=== PATIENT | male | born 1975 | race Caucasian/White ===

== ENCOUNTER 2020-07-03 09:58 | Emergency (ER) | payer MEDICAID ==
[~2020-07-03] VITALS: Ht 190.5 cm; Wt 101.1 kg
[2020-07-03 10:04] VITALS: BP 118/74
== END 2020-07-03 10:44 | disposition home or self-care (01) ==
LOC: ED 10:30
DX: E11.9 Type 2 diabetes mellitus without complications (principal); Z76.0 Encounter for issue of repeat prescription
CPT/HCPCS: 99281

== ENCOUNTER 2020-07-26 15:10 | Emergency (ER) | payer MEDICAID ==
[~2020-07-26] VITALS: Ht 190.5 cm; Wt 101.7 kg
[2020-07-26 15:12] VITALS: BP 132/81
--- NOTE | 2020-07-26 16:42 | NUR ---
REPAIRER GENERAL: CALLED PT NO ANSWER
--- NOTE | 2020-07-26 16:56 | NUR ---
SALES ENABLEMENT CONSULTANT: CALLED PT NO ANSWER
--- NOTE | 2020-07-26 17:11 | NUR ---
CORRECTIONAL SUPERVISOR: CALLED PT NO ANSWER
== END 2020-07-26 17:12 ==
LOC: ED 17:06
DX: E11.9 Type 2 diabetes mellitus without complications (principal); Z53.21 Procedure and treatment not carried out due to patient leaving prior to being seen by health care provider; Z76.0 Encounter for issue of repeat prescription
CPT/HCPCS: 82962

== ENCOUNTER 2020-07-26 17:22 | Emergency (ER) | payer MEDICAID ==
[~2020-07-26] VITALS: Ht 190.5 cm; Wt 105.3 kg
[2020-07-26 17:26] VITALS: BP 122/84
--- NOTE | 2020-07-26 17:40 | NUR ---
PT NEEDS A REFILL ON DIABETES MEDS. PT JUST MOVED TO [place] AND DOES NOT HAVE PRIMARY CARE.
--- NOTE | 2020-07-26 18:05 | NUR ---
PT PROVIDED DISCHARGE INSTRUCTION AND EDUCATION. PT HAD NO FURTHER QUESTIONS. PT AMBULATED TO DISCHARGE AREA, STEADY GAIT.
== END 2020-07-26 18:08 | disposition home or self-care (01) ==
LOC: ED 17:45
DX: E11.9 Type 2 diabetes mellitus without complications (principal); Z76.0 Encounter for issue of repeat prescription; F17.290 Nicotine dependence, other tobacco product, uncomplicated
CPT/HCPCS: 99281

== ENCOUNTER 2020-09-15 10:17 | Emergency (ER) | payer MEDICAID ==
[~2020-09-15] VITALS: Ht 190.5 cm; Wt 101.5 kg
[2020-09-15 10:20] VITALS: BP 136/82
[2020-09-15] MEDS ORDERED: metFORMIN 500 MG TABLET ONE (10:49)
[2020-09-15] MEDS ORDERED: metFORMIN 500 MG TABLET PO ONE (11:00)
== END 2020-09-15 11:01 | disposition home or self-care (01) ==
LOC: ED 10:45
DX: E11.65 Type 2 diabetes mellitus with hyperglycemia (principal); R53.83 Other fatigue; R42 Dizziness and giddiness; Z76.0 Encounter for issue of repeat prescription
CPT/HCPCS: 82962; 99283

== ENCOUNTER 2020-10-14 14:56 | Emergency (ER) | payer MEDICAID ==
[~2020-10-14] VITALS: Ht 190.5 cm; Wt 97.0 kg
--- NOTE | 2020-10-14 15:22 | NUR ---
FIRST CONTACT WITH PATIENT. HE IS A 45M COMPLAINING OF THROAT PAIN SINCE THIS AM. IT IS PAINFUL TO SWALLOW ANY FLUIDS. PROVIDER AT BEDSIDE, COVID SWAB AND STREP SWAB COLLECTED. CALL LIGHT WITHIN REACH, CONTINUOUS SPO2 AND CYCLING VITALS.
[2020-10-14] MEDS ORDERED: KETOROLAC 30 MG/1 ML IM ONE (15:30)
[2020-10-14] MEDS ORDERED: KETOROLAC 30 MG/1 ML ONE (15:31)
[2020-10-14 16:13] VITALS: BP 103/64
== END 2020-10-14 16:15 | disposition home or self-care (01) ==
LOC: ED 15:18
DX: J02.8 Acute pharyngitis due to other specified organisms (principal); Z20.822 Contact with and (suspected) exposure to COVID-19; B97.89 Other viral agents as the cause of diseases classified elsewhere; E11.9 Type 2 diabetes mellitus without complications; F17.200 Nicotine dependence, unspecified, uncomplicated; Z76.0 Encounter for issue of repeat prescription
CPT/HCPCS: 87081; 87635; 87880; 96372; 99283; J1885

== ENCOUNTER 2020-11-13 11:55 | Emergency (ER) | payer MEDICAID ==
[~2020-11-13] VITALS: Ht 190.5 cm; Wt 99.2 kg
[2020-11-13 11:58] VITALS: BP 100/79
== END 2020-11-13 12:32 | disposition home or self-care (01) ==
LOC: ED 12:15
DX: E11.9 Type 2 diabetes mellitus without complications (principal); Z76.0 Encounter for issue of repeat prescription
CPT/HCPCS: 99281

== ENCOUNTER 2020-12-17 12:20 | Emergency (ER) | payer MEDICAID ==
[~2020-12-17] VITALS: Ht 182.9 cm; Wt 97.8 kg
[2020-12-17 12:25] VITALS: BP 110/76
--- NOTE | 2020-12-17 13:21 | NUR ---
PT TO ROOM FROM LOBBY
--- NOTE | 2020-12-17 13:24 | NUR ---
THIS IS A 45 YEAR OLD MALE WHO C/O OF SWELLING, NUMBNESS, AND PAIN IN LEFT FINGERS SINCE YESTERDAY
--- NOTE | 2020-12-17 14:49 | NUR ---
the pt is sleeping comfortably in bed, respirations even and unlabored. call light within reach, awaiting disposition.
== END 2020-12-17 15:40 | disposition home or self-care (01) ==
LOC: ED 13:15
DX: L03.012 Cellulitis of left finger (principal); E11.9 Type 2 diabetes mellitus without complications; F17.200 Nicotine dependence, unspecified, uncomplicated
CPT/HCPCS: 99283

== ENCOUNTER 2020-12-26 10:20 | Emergency (ER) | payer MEDICAID ==
[~2020-12-26] VITALS: Ht 190.5 cm; Wt 97.1 kg
[2020-12-26 10:23] VITALS: BP 100/72
--- NOTE | 2020-12-26 11:08 | NUR ---
Patient given discharge instructions and they have confirmed that they understand the instructions. Patient ambulatory with steady gait.
== END 2020-12-26 11:09 | disposition home or self-care (01) ==
LOC: ED 10:28
DX: E11.9 Type 2 diabetes mellitus without complications (principal); Z76.0 Encounter for issue of repeat prescription
CPT/HCPCS: 99281

== ENCOUNTER 2021-02-10 17:57 | Emergency (ER) | payer MEDICAID ==
[~2021-02-10] VITALS: Ht 190.5 cm; Wt 93.1 kg
[2021-02-10 18:09] VITALS: BP 121/74
--- NOTE | 2021-02-10 18:31 | NUR ---
Pt takes 1000mg Metformin BID and unknown dose of Glipizide for DM. Pt states he was diagnosed with DM 3 years ago in [place], he moved and has not found a PCP here.
== END 2021-02-10 18:39 | disposition home or self-care (01) ==
LOC: ED 18:09
DX: E11.9 Type 2 diabetes mellitus without complications (principal); Z76.0 Encounter for issue of repeat prescription; F17.210 Nicotine dependence, cigarettes, uncomplicated
CPT/HCPCS: 82962; 99406

== ENCOUNTER 2021-03-22 11:48 | Emergency (ER) | payer MEDICAID ==
[~2021-03-22] VITALS: Ht 190.5 cm; Wt 90.9 kg
[2021-03-22 12:15] VITALS: BP 98/71
--- NOTE | 2021-03-22 13:03 | NUR ---
ground crew lines person: Pt ambulatory to room from lobby at this time.
== END 2021-03-22 14:49 | disposition home or self-care (01) ==
LOC: ED 13:10
DX: K02.9 Dental caries, unspecified (principal); F17.210 Nicotine dependence, cigarettes, uncomplicated; E11.9 Type 2 diabetes mellitus without complications
CPT/HCPCS: 99283; 99406

== ENCOUNTER 2021-04-16 08:04 | Emergency (ER) | payer MEDICAID ==
[~2021-04-16] VITALS: Ht 188 cm; Wt 92.7 kg
--- NOTE | 2021-04-16 08:39 | NUR ---
FAIRING WORKER: PT TO ROOM FROM [facility]
--- NOTE | 2021-04-16 09:24 | NUR ---
PT TO ROOM 14 W/ C/O THINKING HE HAS GLASS IN HIS FOOT. PT STATES THEY HAD GLASS BREAK AT WORK AND WHILE HE WAS SWEEPING IT HE THINKS IT SOMEHOW GOT INTO HIS FOOT. PT STATES HE ATTEMPTED TO GET IT OUT OF HIS FOOT W/O SUCCESS. PT STATES HX DM 2. ALSO HOPING TO GET A REFILL ON HIS RX. PT RESTING ON KELSIE. CHARLES. SHAMEKAS.
[2021-04-16] MEDS ORDERED: DIPH,PERTUSS(ACELL),TET VAC/PF 0.5 ML IM-VACC ONE ×2 (10:26→10:30)
[2021-04-16] MEDS ORDERED: NEOSPORIN OINT. PKT 1 PACKET ONE (10:26)
[2021-04-16 10:28] VITALS: BP 123/78
--- NOTE | 2021-04-16 10:29 | NUR ---
PT RESTING ON GURNEY. NADN. PRADHAN.
== END 2021-04-16 10:43 | disposition home or self-care (01) ==
LOC: ED 10:30
DX: S91.341A Puncture wound with foreign body, right foot, initial encounter (principal); F17.210 Nicotine dependence, cigarettes, uncomplicated; W22.8XXA Striking against or struck by other objects, initial encounter; Y93.89 Activity, other specified; Y92.89 Other specified places as the place of occurrence of the external cause; Y99.8 Other external cause status
CPT/HCPCS: 90471; 90715; 99406

== ENCOUNTER 2021-04-18 08:06 | Emergency (ER) | payer MEDICAID ==
[~2021-04-18] VITALS: Ht 190.5 cm; Wt 91.5 kg
[2021-04-18 08:10] VITALS: BP 105/58
--- NOTE | 2021-04-18 08:18 | NUR ---
PT AMBULATORY TO ROOM FROM TRIAGE, CHANGED INTO GOWN. PT C/O R-ARMPIT RASH STARTING LAST NIGHT, ERYTHMA NOTED. PT ALSO C/O L-BOTTOM DENTAL PAIN FOR 3 DAYS. PT ALSO STATES HE WAS HERE LAST NIGHT FOR GLASS IN HIS FOOT WHICH IS STILL PAINFUL TODAY.
--- NOTE | 2021-04-18 08:19 | NUR ---
PA AT BS
--- NOTE | 2021-04-18 08:49 | NUR ---
Patient given discharge instructions and rx, they have confirmed that they understand the instructions. Patient ambulatory with steady gait.
== END 2021-04-18 08:51 | disposition home or self-care (01) ==
LOC: ED 08:28
DX: M79.672 Pain in left foot (principal); K02.9 Dental caries, unspecified; K08.89 Other specified disorders of teeth and supporting structures; R21 Rash and other nonspecific skin eruption
CPT/HCPCS: 99283

== ENCOUNTER 2021-05-22 13:21 | Emergency (ER) | payer MEDICAID ==
[~2021-05-22] VITALS: Ht 188 cm; Wt 93.0 kg
[2021-05-22 13:44] VITALS: BP 107/73
--- NOTE | 2021-05-22 14:04 | NUR ---
TASK RN: Patient/Caregiver given discharge instructions and they have confirmed that they understand the instructions. Patient ambulatory with steady gait. NAD, all questions answered appropriately, denies additional needs at this time. No personal belongings left in room after discharge.
== END 2021-05-22 14:05 | disposition home or self-care (01) ==
LOC: ED 13:53
DX: E11.65 Type 2 diabetes mellitus with hyperglycemia (principal); Z76.0 Encounter for issue of repeat prescription
CPT/HCPCS: 82962; 99283

== ENCOUNTER 2021-06-08 09:49 | Emergency (ER) | payer MEDICAID ==
[~2021-06-08] VITALS: Ht 190.5 cm; Wt 89.0 kg
[2021-06-08 13:46] VITALS: BP 107/75
--- NOTE | 2021-06-08 15:28 | NUR ---
INFUSION THERAPY NURSE: PT TO ROOM FROM LOBBY
== END 2021-06-08 15:50 | disposition home or self-care (01) ==
LOC: ED 15:40
DX: R05 Cough (principal); R06.02 Shortness of breath; Z20.822 Contact with and (suspected) exposure to COVID-19; R94.31 Abnormal electrocardiogram [ECG] [EKG]; E11.9 Type 2 diabetes mellitus without complications
CPT/HCPCS: 71045; 82962; 93005; 99285; U0003; U0005